=== PATIENT | male | born 1965 | race Caucasian/White ===

== ENCOUNTER 2017-12-08 15:45 | Emergency (ER) | payer OTHER ==
--- NOTE | 2017-12-08 16:24 | ER Document Report ---
HPI - HPI Pain Level: 4 Notes: Patient is a 52-year-old male with a history of hypertension and sleep apnea who presents to the ED complaining of left lateral ankle pain status post injury prior to arrival. Patient states that he fell in a hole and twisted his ankle. Patient states that he has had surgery to that ankle previously for a previous fracture about 5 years ago. Patient states that he has been using crutches because he cannot weight-bear currently. Pain does not radiate. Denies any smoking or IV drug use. Denies any drug allergies. Denies any headache, fever, head injury, neck pain, URI, sore throat, chest pain, palpitations, syncope, cough, shortness of breath, wheeze, dyspnea, abdominal pain, nausea/vomiting/diarrhea, urinary retention, dysuria, hematuria, numbness/ tingling, muscle paralysis, or rash. - ROS Systems Reviewed and Negative: Yes All other systems reviewed and negative Past Medical History - Social History Smoking Status: Never Smoker Family History: Reviewed & Not Pertinent - Past Medical History Cardiac Medical History: Reports: Hx Hypercholesterolemia Past Surgical History: Reports: Hx Orthopedic Surgery - R Shoulder, L Ankle - Immunizations Hx Diphtheria, Pertussis, Tetanus Vaccination: Yes Vertical Provider Document - CONSTITUTIONAL Agree With Documented VS: Yes Notes: PHYSICAL EXAMINATION: GENERAL: Well-appearing, well-nourished and in no acute distress. LUNGS: Breath sounds clear to auscultation bilaterally and equal. No wheezes rales or rhonchi. HEART: Regular rate and rhythm without murmurs, rubs, gallops. Musculoskeletal: Left ankle: + mild swelling to the lateral malleolus. + tenderness to palp of the lateral malleolus. no other bony tenderness of the foot/ankle. N/V intact distal. Achilles intact. LROM to passive/active. Strength 4+/5 to eversion and dorsiflexion due to pain. Extremities: No cyanosis, clubbing, or edema b/l. Peripheral pulses 2+. Capillary refill less than 3 seconds. NEUROLOGICAL: Normal speech, using cruthces. Normal sensory, motor exams PSYCH: Normal mood, normal affect. SKIN: Warm, Dry, normal turgor, no rashes or lesions noted. - INFECTION CONTROL TRAVEL OUTSIDE OF THE [place] IN LAST 30 DAYS: No Course - Re-evaluation Re-evalutation: 12/08/17 17:10 Patient is an afebrile, well-hydrated, 52-year-old male who presents to the ED with a nondisplaced avulsion fracture to the left lateral malleolus. Vitals are acceptable. PE is otherwise unremarkable for any neurovascular compromise, obvious tendon/ligament rupture, open fracture, septic joint. See x-ray result. Posterior ankle splint placed today with crutches not provided as he brought his own. Patient states that he took naproxen prior to arrival and declined any other pain medication at this time. Conservative measures for symptoms otherwise. Recheck with your PCM in 1 week. Scheduled appointment with orthopedics for further evaluation and management. Return to the ED with any worsening/concerning symptoms otherwise as reviewed discharge. Patient is in agreement. - Vital Signs Vital signs: Temp Pulse Resp BP Pulse Ox 97.6 F 109 H 18 148/89 H 96 12/08/17 15:51 12/08/17 15:51 12/08/17 15:51 12/08/17 15:51 12/08/17 15:51 Procedures - Immobilization Left Ankle Time completed: 17:10 Pre-Proc Neuro Vasc Exam: Normal Immobilizer type: Posterior ankle Performed by: PCT Post-Proc Neuro Vasc Exam: Normal, Unchanged from pre-exam Discharge - Discharge Clinical Impression: Left ankle pain Qualifiers: Chronicity: acute Qualified Code(s): M25.572 - Pain in left ankle and joints of left foot Condition: Stable Disposition: HOME, SELF-CARE Instructions: Avulsion Fracture of the Ankle ([facility]), Use of Crutches ([facility]) Additional Instructions: Rest, Ice, Compression, Elevation Use crutches/splint as directed Tylenol/ibuprofen as needed Light stretches daily Strength exercises as able Moist heat and massage may help F/u with your PCP in 3-5 days for a recheck Schedule an appoint with orthopedics for further evaluation and management Return to the ED with any worsening symptoms and/or development of fever, headache, chest pain, palpitations, syncope, shortness of breath, trouble breathing, abdominal pain, n/v/d, muscle weakness/paralysis, numbness/tingling, swelling, redness, or other worsening symptoms that are concerning to you. Forms: Elevated Blood Pressure Referrals: [facility] [Provider Group] - Follow up in 3-5 days
--- NOTE | 2017-12-08 16:54 | RADIOLOGY REPORT (SQ) ---
EXAM DESCRIPTION: ANKLE LEFT COMPLETE COMPLETED DATE/TIME: 12/08/2017 4:42 pm REASON FOR STUDY: left ankle pain s/p injury COMPARISON: None. NUMBER OF VIEWS: Three views. TECHNIQUE: AP, lateral, and oblique radiographic images acquired of the left ankle. LIMITATIONS: None. FINDINGS: MINERALIZATION: Normal. BONES: Nondisplaced avulsion injury of the tip of the lateral malleolus. Background of tibiotalar de generative changes. Tiny plantar enthesophyte. JOINTS: A small joint effusion is present. SOFT TISSUES: Mild soft tissue swelling overlies the injury. OTHER: No other significant finding. IMPRESSION: Nondisplaced avulsion injury of the tip of the lateral malleolus. TECHNICAL DOCUMENTATION: JOB ID: [id number] [employer]- All Rights Reserved Reading location - IP/workstation name: [email or web address]
[2017-12-08 17:20] VITALS: BP 129/80
== END 2017-12-08 17:20 | disposition home or self-care (01) ==
LOC: ER 15:45
DX: S82.65XA Nondisplaced fracture of lateral malleolus of left fibula, initial encounter for closed fracture (principal); W17.2XXA Fall into hole, initial encounter; Z98.890 Other specified postprocedural states; I10 Essential (primary) hypertension
CPT/HCPCS: 99283

== ENCOUNTER 2019-01-19 10:21 | Emergency (ER) | payer OTHER ==
[2019-01-19 10:28] VITALS: BP 160/92
--- NOTE | 2019-01-19 10:42 | ER Document Report ---
HPI - HPI Patient complains to provider of: r eye drainage Time Seen by Provider: 01/19/19 10:35 Onset: Yesterday Onset/Duration: Gradual Pain Level: Denies Context: Patient presents stating that he has had drainage of the right eye started yesterday. She states that he woke up with matting today. Patient states yesterday he was in the yard and felt like something may have gotten into the eye. Patient does not wear any contact lenses. Patient denies any change in vision. Associated Symptoms: Other - Right eye drainage Exacerbated by: Denies Relieved by: Denies Similar symptoms previously: No Recently seen / treated by doctor: No - ROS ROS below otherwise negative: Yes Systems Reviewed and Negative: Yes All other systems reviewed and negative - CONSTITUTIONAL Constitutional: DENIES: Fever - EENT EENT: REPORTS: Eye problems - GASTROINTESTINAL Gastrointestinal: DENIES: Nausea, Patient vomiting - DERM Skin Color: Normal Skin Problems: None Past Medical History - General Information source: Patient - Social History Smoking Status: Never Smoker Frequency of alcohol use: Occasional Drug Abuse: None Occupation: [employer] Family History: Reviewed & Not Pertinent - Past Medical History Cardiac Medical History: Reports: Hx Hypercholesterolemia, Hx Hypertension Renal/ Medical History: Denies: Hx Peritoneal Dialysis Past Surgical History: Reports: Hx Orthopedic Surgery - R Shoulder, L Ankle - Immunizations Hx Diphtheria, Pertussis, Tetanus Vaccination: Yes Vertical Provider Document - CONSTITUTIONAL Agree With Documented VS: Yes Exam Limitations: No Limitations General Appearance: WD/WN, No Apparent Distress - INFECTION CONTROL TRAVEL OUTSIDE OF THE [place] IN LAST 30 DAYS: No - HEENT HEENT: Atraumatic, Normocephalic, PERRLA Notes: No fluoroscein uptake, lid everted, no foreign body. No corneal ulcer, abrasion, foreign body or dendrite. Scant crusted drainage matting eyelashes. No ptosis, no eye pain with eye movement, no periorbital edema. - NECK Neck: Normal Inspection - RESPIRATORY Respiratory: No Respiratory Distress - MUSCULOSKELETAL/EXTREMETIES Musculoskeletal/Extremeties: MAEW - NEURO Level of Consciousness: Awake, Alert, Appropriate - DERM Integumentary: Warm, Dry, No Rash Course - Vital Signs Vital signs: Temp Pulse Resp BP Pulse Ox 99.2 F 60 18 160/92 H 96 01/19/19 10:27 01/19/19 10:27 01/19/19 10:27 01/19/19 10:27 01/19/19 10:27 Discharge - Discharge Clinical Impression: Conjunctivitis, right eye Qualifiers: Conjunctivitis type: acute Acute conjunctivitis type: unspecified Qualified Code(s): H10.31 - Unspecified acute conjunctivitis, right eye Condition: Good Disposition: HOME, SELF-CARE Instructions: Conjunctivitis ([facility]), Eyedrop Use ([facility]) Additional Instructions: Return immediately for any new or worsening symptoms Followup with your primary care provider, call tomorrow to make a followup appointment Follow-up with ophthalmology for any persistent problems Prescriptions: Polymyxin B Sulfate/Tmp [Polytrim Oph Soln 10 ml] 1 drop RT_EYE ASDIR #1 bottle Referrals: EDDIE SUAZO MD [Primary Care Provider] - Follow up as needed [facility] [Provider Group] - Follow up as needed
== END 2019-01-19 11:00 | disposition home or self-care (01) ==
LOC: ER 10:21
DX: H10.31 Unspecified acute conjunctivitis, right eye (principal); I10 Essential (primary) hypertension
CPT/HCPCS: 99282